=== PATIENT | male | born 1950 | race African-American/Black ===

== ENCOUNTER 2016-07-23 06:32 | Emergency (ER) | payer MEDICARE ==
--- NOTE | ~2016-07-23 | EKG ---
PATIENT: ISABELA ASH UNIT #: [id number] Ventricular Rate: 54 BPM Atrial Rate: 54 BPM P-R Interval: 204 ms QRS Duration: 156 ms Q-T Interval: 458 ms QTC Calculation(Bezet): 434 ms P Crane: 85 degrees Calculated R Crane: -64 degrees Calculated T Crane: 80 degrees Diagnosis Line: Sinus bradycardia Diagnosis Line: Biatrial enlargement Diagnosis Line: Left axis deviation Diagnosis Line: Right bundle branch block Diagnosis Line: Nonspecific ST elevation Diagnosis Line: Abnormal ECG Diagnosis Line: When compared with ECG of 05-APR-2016 05:04, Diagnosis Line: No significant change was found Diagnosis Line: Confirmed by NICOLE MARIA MD ([id number]) on Diagnosis Line: 07/23/2016 10:45:54 PM INTERPRETING MD: CINTHYA
--- NOTE | ~2016-07-23 | CR2 ---
[facility] A Service of [facility] RADIOLOGY TEXT RESULTS PATIENT: ISABELA ASH LOCATION: [facility] : 46 UNIT #: [id number] AGE: [address]: Carrie Vela SEX: M ORDER DR: [id number] [facility] [address] [place], [place] [address] [id number] E MR#: [id number] Acc #: [id number] NAME: ISABELA ASH : 1950 SEX: M STUDY DATE/TIME: 07/23/2016 10:44 UNIT: [facility] ROOM: STUDY DESCRIPTION: CR Abdomen Acute Series Attending Physician: Carrie Vela Pa-C Ordering Physician: Ed Doc Lei Baron Primary Care Physician: No Primary Care Physician MEDICAL IMAGING REPORT This report is preliminary unless electronic signature is present EXAM Acute abdomen series 07/23/2016 1044 hours CLINICAL HISTORY Nausea, vomiting, abdominal pain with diarrhea for [address] abdomen 04/05/2016 and chest x-ray 02/13/2012. FINDINGS Upright chest film demonstrates normal heart size. Mediastinal, hilar, and aortic contours are normal. The lungs are clear. There is no effusion or pneumothorax. Supine and upright views of the abdomen demonstrate gaseous distension of multiple loops of small bowel with some colonic gas seen. There is some dense material in the left upper quadrant which is likely either contrast material or dense medication within the stomach. There are lower pelvic calcifications unchanged from prior CT consistent with phleboliths. IMPRESSION 1. No acute findings in the chest. No free air. 2. There is gaseous distension of multiple loops of small bowel with some colonic gas seen. Findings could represent an early or partial small bowel obstruction. Adynamic ileus is likely. 3. Dense material in the left upper quadrant appears to be within the stomach. This could represent oral contrast material if the patient ingested any oral contrast material or perhaps some dense medication. 4. Bilateral pelvic phleboliths unchanged from CT scan 04/05/2016. Dictated by... [facility] A Service [facility] RADIOLOGY TEXT RESULTS PATIENT: ISABELA ASH LOCATION: [facility] : 46 UNIT #: [id number] AGE: [address]: Carrie Vela SEX: M ORDER DR: Elizabeth Ramos M.D. THIS IS AN ELECTRONICALLY VERIFIED REPORT Elizabeth Ramos M.D. at 07/23/2016 2:29 PM MATILDE/tamika TD: 07/23/2016 11:50 JOB #: [id number] MEDICAL IMAGING REPORT Page 1 of 1 COPY
--- NOTE | ~2016-07-23 | CT2 ---
[facility] A Service of [facility] RADIOLOGY TEXT RESULTS PATIENT: ISABELA ASH LOCATION: [facility] : 46 UNIT #: [id number] AGE: [address]: Carrie Vela SEX: M ORDER DR: [id number] [facility] [address] [place], [place] [address] [id number] E MR#: [id number] Acc #: [id number] NAME: ISABELA ASH : 1950 SEX: M STUDY DATE/TIME: 07/23/2016 12:34 UNIT: [facility] ROOM: STUDY DESCRIPTION: CT Abd and Pelv W Cont Attending Physician: Carrie Vela Pa-C Ordering Physician: Ed Doctor [id number] [facility] Primary Care Physician: Primary Care Physician No MEDICAL IMAGING REPORT This report is preliminary unless electronic signature is present EXAM CT abdomen and pelvis 07/23/2016 INDICATION Abdominal pain that started yesterday with nausea and diarrhea. Symptoms worsened today. TECHNIQUE Axial images were obtained through the abdomen and pelvis following IV contrast administration. Multiplanar reformats were obtained. This CT exam was performed with one or more of the following radiation dose reduction techniques: Automatic exposure control, adjustment of mA and/or kV according to patient size, and iterative reconstruction. COMPARISON Comparison is made with 04/05/2016. FINDINGS ABDOMEN: Lung bases are clear. Gallbladder is unremarkable. No biliary obstruction is seen. There is a cyst in the lower pole of the right kidney. Prominent pancreatic duct is stable. Solid organs are otherwise unremarkable. No free fluid is seen. Unopacified GI tract is normal. PELVIS: Urinary bladder is normal. There is no free fluid. The appendix is normal, as is the remainder of the GI tract. IMPRESSION 1. No acute findings in the abdomen or pelvis. 2. Normal unopacified GI tract including the appendix. 3. Kidneys are nonobstructed and enhance normally. [facility] A Service of [facility] RADIOLOGY TEXT RESULTS PATIENT: ISABELA ASH LOCATION: [facility] : 46 UNIT #: [id number] AGE: [address]: Carrie Vela SEX: M ORDER DR: Dictated by... Weston Hayes Jr., M.D. THIS IS AN ELECTRONICALLY VERIFIED REPORT Weston Hayes Jr., M.D. at 07/24/2016 11:21 AM YOSSI/tamika TD: 07/23/2016 14:16 JOB #: [id number] MEDICAL IMAGING REPORT Page 1 of 1
[~2016-07-23 06:32] MED LIST: ANEXSIA 5/325 M1 TA1 PO; ASPIRIN PO; ASPIRIN81 M1 PO; BENTYL20 MG PO; FLEXERIL10 M1 PO; GINKGO BILOBA120 M1 PO; HCTZ PO; HYDROCHLOROTH12.5 MG PO; IBUPROFEN800 MG PO; IMODIUM2 MG PO; MEDROL4 MG/DOSE- PO; NORCO 5/325 TAB1 TAB PO; PHENERGAN PO; PHENERGAN SUPP25 M1 PR; PHENERGAN25 M1 DOB; PHENERGAN25 M1 PO; VITAMIN C1000 M2 PO; [UNRECOGNIZED DRUG - REMARK]
[2016-07-23 08:30] LABS: BASOPHIL% 0.3 % (0-2.5); EOSINOPHIL% 0.1 % (0.0-7.0); HEMOGLOBIN 16.5 gm/dL (13.0-16.0); LYMPHOCYTE# 0.6 X10e3 (1.0-3.5); LYMPHOCYTE% 8.1 % (17.0-45.0); MEAN CELL VOLUME 94.1 FL (83-96); MEAN CORPUSCULAR HEMOGLOBIN 29.8 PG (28-34); MEAN CORPUSCULAR HGB CONC 31.7 g/dL (30-36); MEAN PLATELET VOLUME 8.5 FL (6.5-11.5); MONOCYTE# 0.2 X10e3 (0-1.0); MONOCYTE% 3.1 % (3.0-12.0); NEUTROPHIL# 6.7 X10e3 (1.5-7.1); NEUTROPHIL% 88.4 % (40-75); PLATELET COUNT 225 X10e3 (140-420); RED BLOOD COUNT 5.53 X10e (3.90-5.60); RED CELL DISTRIBUTION WIDTH 13.7 % (11.0-15.5); WHITE BLOOD COUNT 7.5 X10e3 (4.0-10.5)
[2016-07-23 08:43] LABS: DIFF IND NO
[2016-07-23 08:53] LABS: ALBUMIN SERUM 5.1 g/dL (3.5-5.0); BUN/CREATININE RATIO 15.45; CREATININE SERUM 1.1 mg/dL (0.6-1.4); GLOM FILT RATE Estimated 79.5 mL/min (>60); POTASSIUM 3.4 mmol/L (3.5-5.1); PROTEIN TOTAL SERUM 9.1 g/dL (6.0-8.3)
[2016-07-23 09:17] LABS: POC - CKMB 1.4 ng/mL (0.0-7.9); POC - TROPONIN <0.05 ng/mL (<=0.05)
[2016-07-23 12:13] LABS: URINE SOURCE CLEAN CATCH
[2016-07-23 12:16] LABS: URINE APPEARANCE CLEAR; URINE BILIRUBIN NEG (NEG); URINE BLOOD TRACE (NEG); URINE COLOR YELLOW; URINE GLUCOSE NEG (NEG); URINE KETONE 1+ (NEG); URINE LEUKOCYTE ESTERASE NEG (NEG); URINE NITRATE NEG (NEG); URINE PH 5.5 (5-8); URINE SPECIFIC GRAVITY 1.023 (1.003-1.035)
[2016-07-23 12:19] LABS: U HYALINE CASTS AUWI 0-2 /[LPF]; URINE BACTERIA AUWI NEG (NEGATIVE); URINE SQUAMOUS EPITHELIAL CELL OCC /[HPF]; UWBCS1 AUWI 0-2 (0-5)
[2016-07-23 12:23] LABS: URINE PROTEIN 1+ (NEG)
== END 2016-07-23 14:46 | disposition home or self-care (01) ==
LOC: CED 06:32
PROVIDERS: Physician Assistant
DX: R10.84 Generalized abdominal pain (principal); R11.2 Nausea with vomiting, unspecified; R19.7 Diarrhea, unspecified; I10 Essential (primary) hypertension; G40.909 Epilepsy, unspecified, not intractable, without status epilepticus; Z86.73 Personal history of transient ischemic attack (TIA), and cerebral infarction without residual deficits; Z98.890 Other specified postprocedural states
CPT/HCPCS: 36415; 74022; 74177; 80053; 81003; 82553; 83690; 83735; 84484; 85025; 93005; 96374; 96375; 99284; J0360; J2270; J2405; Q9967